=== PATIENT | male | born 1960 | race Caucasian/White ===

== ENCOUNTER 2017-04-24 07:37 | Emergency (ER) | payer OTHER ==
[2017-04-24 08:20] LABS: APPEARANCE CLOUDY (CLEAR); BACTERIA MANY /hpf (NONE SEEN); BILIRUBIN NEGATIVE (NEGATIVE); COLOR DK YELLOW (YELLOW); EPITHELIAL CELLS 0-5 /hpf (0-5); GLUCOSE 1000 mg/dL (NEGATIVE); KETONE NEGATIVE (NEGATIVE); MUCUS <1+ /lpf (NONE SEEN); NITRITE NEGATIVE (NEGATIVE); PROTEIN 1+ mg/dL (NEGATIVE); RED CELLS - URINE 0-5 /hpf (0-5); SPECIFIC GRAVITY 1.005 (1.005-1.020); WHITE CELLS - URINE >50 /hpf (0-5)
[2017-04-24 08:33] LABS: CALC OSMOLALITY 271 mosm/kg (275-300); CALCIUM 8.6 mg/dL (8.5-10.1); CARBON DIOXIDE 21.8 mmol/L (21.0-32.0); CHLORIDE - SERUM 95 mmol/L (98-107); CREATININE - SERUM 0.7 mg/dL (0.6-1.3); GLUCOSE 298 mg/dL (74-106); POTASSIUM - SERUM 3.7 mmol/L (3.5-5.1); SODIUM 130 mmol/L (136-145); UREA NITROGEN 13 mg/dL (7-18); eGFR NON AFRICAN AMERICAN > 90 mL/min (90-120)
[2017-04-24 09:06] LABS: BASOPHILS 0.4 % (0-2); EOSINOPHILS 0.3 % (0-7); HEMATOCRIT 48.7 % (42.0-54.0); HEMOGLOBIN 17.5 g/dL (13.5-17.5); IMMATURE GRANULOCYTES 0.3 % (0-5); LYMPHOCYTES 28.8 % (15-50); MCH 29.7 pg (26.0-34.0); MCHC 35.9 g/dL (31.0-37.0); MCV 82.5 fL (80.0-100.0); MEAN PLATELET VOLUME 11.9 fL (7.4-10.4); MONOCYTES 8.7 % (2-11); NEUTROPHILS 61.5 % (40-80); PLATELET COUNT 141 10x3/uL (130-400); RDW 12.7 % (11.5-14.5); WBC 7.6 10x3/uL (4.8-10.8)
== END 2017-04-24 10:32 | disposition home or self-care (01) ==
LOC: D.ER 07:37
PROVIDERS: Emergency Medicine
DX: N39.0 Urinary tract infection, site not specified (principal); E11.65 Type 2 diabetes mellitus with hyperglycemia; E87.1 Hypo-osmolality and hyponatremia; N45.1 Epididymitis; F17.200 Nicotine dependence, unspecified, uncomplicated